=== PATIENT | female | born 1985 | race Caucasian/White ===

== ENCOUNTER 2020-12-02 21:51 | Emergency (ER) | payer OTHER ==
[~2020-12-02 21:51] MED LIST: AMOXICILLIN250 M1 OR; FLAGYL500 MG OR; LO LOESTRIN OR; MIRENA IU; NO MEDS
== END 2020-12-02 22:10 | disposition left against medical advice (07) | DRG 951 ==
LOC: ED 21:51 → LWOBS 22:10
DX: Z53.21 Procedure and treatment not carried out due to patient leaving prior to being seen by health care provider (principal)